=== PATIENT | female | born 1930 | race Caucasian/White ===

== ENCOUNTER 2017-06-10 12:28 | Emergency (ER) | payer MEDICARE ==
[~2017-06-10] VITALS: Ht 160 cm; Wt 75.0 kg
[~2017-06-10 12:28] MED LIST: ASPIRIN81 MG; BUSPAR10 MG PO; CALCIUM600 MG; CALCIUM600 MG PO; CIPRO500 MG PO; CYPROHEPTADINE H4 MG PO; DESYREL100 MG PO; EFFEXOR XR150 MG; EFFEXOR XR150 MG PO; ENTOCORT EC3 MG; ENTOCORT EC3 MG PO; FOSAMAX35 MG PO; LEVAQUIN250 M1 PO; LEVOTHYROXINE75 MCG PO; LISINOPRIL20 MG; METOPROLOL TART25 MG PO; MULTIVITAMIN1 CAP; MULTIVITAMIN1 TAB PO; OMEPRAZOLE20 M2 PO; PLAVIX75 MG PO; PREDNISONE20 MG PO; SUPER B-COMPLEX1 TAB PO; TOPROL XL25 MG PO; VICODIN 5/500 T1 TAB PO; VITAMIN D 22000 UNIT PO; ZINC SULFATE220 MG; ZINC SULFATE220 MG PO; ZOCOR20 MG; ZOCOR40 MG PO; ZOFRAN ODT4 MG/UDTAB PO; Zinc Sulfate PO; [UNRECOGNIZED DRUG - OTHER] PO
[2017-06-10] MEDS ORDERED: ACID CONTROL150 M2 PO (13:11)
[2017-06-10] MEDS ORDERED: TRAZODONE HCL100 M1 PO (13:12)
[2017-06-10] MEDS ORDERED: ENTOCORT EC3 M1 PO (13:12)
[2017-06-10] MEDS ORDERED: SYNTHROID75 MC1 PO (13:12)
[2017-06-10] MEDS ORDERED: EFFEXOR XR150 M1 PO (13:13)
[2017-06-10] MEDS ORDERED: CARAFATE1 G2 PO (13:13)
[2017-06-10] MEDS ORDERED: TOPROL XL25 M1 PO (13:14)
[2017-06-10] MEDS ORDERED: BACLOFEN10 M1 PO (13:14)
[2017-06-10] MEDS ORDERED: ZOCOR40 M1 PO (13:14)
[2017-06-10] MEDS ORDERED: PLAVIX75 M1 PO (13:14)
[2017-06-10] MEDS ORDERED: CALCIUM + VITA1 EAC4 PO (13:14)
[2017-06-10 13:15] LABS: BASO % 0.5 % (0-2); EOS % 2.3 % (0-7); EOSINOPHIL ABSOLUTE COUNT 0.1 tho/cmm (0.0-0.7); HCT-HEMATOCRIT 43.2 % (34.0-49.0); HGB-HEMOGLOBIN 14.6 gm/dl (12.0-15.5); IMMATURE GRANULOCYTES ABSOLUTE 0.01 tho/cmm (0-0.03); IMMATURE GRANULOCYTES PERCENT 0.2 % (0-0.3); LYMPH % 9.6 % (20-45); LYMPH ABSOLUTE COUNT 0.6 tho/cmm (0.8-4.5); MCHC MEAN CORPUSCULAR HGB CONC 33.8 % (32.0-36.0); MCV (MEAN CELL VOLUME) 88.9 fl (82.0-96.0); MEAN PLATELET VOLUME 9.6 cmc (9.4-12.4); MONO % 10.9 % (0-12); MONOCYTE ABSOLUTE COUNT 0.7 tho/cmm (0.0-1.2); NEUTROPHIL ABSOLUTE COUNT 4.7 tho/cmm (1.6-8.0); NEUTROPHIL-AUTOMATED 4.7 tho/cmm (1.6-8.0); NEUTROPHILS % 76.5 % (40-80); PLATELET COUNT 231 tho/cmm (150-450); RED BLOOD COUNT 4.86 mil/cmm (4.00-5.20); RED CELL DISTRIBUTION WIDTH 13.7 % (12.4-16.4); WHITE BLOOD COUNT 6.1 tho/cmm (4.0-10.0)
[2017-06-10] MEDS ORDERED: VITAMIN D31000 UNI3 PO (13:15)
[2017-06-10] MEDS ORDERED: MULTIVITAMINS1 EAC7 PO (13:15)
[2017-06-10] MEDS ORDERED: ORAZINC220 M1 PO (13:15)
[2017-06-10 13:38] LABS: ALB/GLOB RATIO 1.1 (0.8-2.0); ALBUMIN 3.8 g/dl (3.5-5.0); ALKALINE PHOSPHATASE 65 U/L (33-138); ALT/SGPT 24 U/L (12-78); ANION GAP 12 mmol/L (0-20); AST/SGOT 20 U/L (10-40); BILIRUBIN,TOTAL 0.4 mg/dl (0-1.5); BLOOD UREA NITROGEN 19 mg/dl (6-24); CARBON DIOXIDE-VENOUS 29 mmol/L (22-32); CHLORIDE 98 mmol/l (96-110); CREATININE 1.01 mg/dl (0.50-1.10); GLUCOSE 93 mg/dL (70-110); LIPASE 197 U/L (73-393); POTASSIUM 3.9 mmol/L (3.7-5.1); SODIUM 135 mmol/L (135-145); eGFR VALUE FOR BLACK 58 mL/Min
[2017-06-10 14:47] LABS: URINE APPEARANCE CLEAR; URINE BILIRUBIN NEGATIVE (NEG); URINE BLOOD NEGATIVE (NEG); URINE COLOR YELLOW; URINE GLUCOSE (UA) NEGATIVE (NEG); URINE KETONE NEGATIVE (NEG); URINE LEUKOCYTE ESTERASE NEGATIVE (NEG); URINE NITRITE NEGATIVE (NEG); URINE PROTEIN NEGATIVE (NEG); URINE SPECIFIC GRAVITY 1.015 (1.003-1.030)
== END 2017-06-10 15:44 ==
LOC: EDMED → EDBD 12:28 → EDMED 12:28
PROVIDERS: Emergency Medicine
DX: K59.00 Constipation, unspecified (principal); R10.9 Unspecified abdominal pain; I10 Essential (primary) hypertension; E78.5 Hyperlipidemia, unspecified; Z88.5 Allergy status to narcotic agent; Z88.6 Allergy status to analgesic agent; Z88.8 Allergy status to other drugs, medicaments and biological substances
CPT/HCPCS: J7030; Q9967